=== PATIENT | male | born 1980 | race African-American/Black ===

== ENCOUNTER 2018-07-25 12:01 | Emergency (ER) | payer OTHER ==
[2018-07-25] MEDS ORDERED: LIDOCAINE 5% TOPICAL PATCH TP ONE (12:22)
[2018-07-25] MEDS ORDERED: KETOROLAC TROMETHAMINE 60 MG/2 ML VIAL ONE (12:22)
[2018-07-25] MEDS ORDERED: ORPHENADRINE CITRATE 30 MG/ML ML ONE (12:22)
[2018-07-25 13:10] LABS: APPEARANCE,URINE Clear (CLEAR); BILIRUBIN,URINE Negative (NEGATIVE); COLOR,URINE Yellow (YELLOW); GLUCOSE, URINE (UA) Negative (NEGATIVE); KETONES,URINE Trace mg/dL (NEGATIVE); LEUKOCYTE ESTERASE ,URINE Negative (NEGATIVE); NITRATE,URINE Negative (NEGATIVE); OCCULT BLOOD,URINE Negative (NEGATIVE); PH,URINE 5.5 (5.0-8.0); PROTEIN,URINE Trace (NEGATIVE)
[2018-07-25 13:36] LABS: BACTERIA,URINE Rare /HPF (None Seen); MUCUS,URINE Many LPF (None Seen); SQUAMOUS EPITHELIAL CELL,UR Few /HPF (0-2)
== END 2018-07-25 13:28 | disposition home or self-care (01) ==
LOC: EDH 12:01
DX: M54.42 Lumbago with sciatica, left side (principal)
CPT/HCPCS: 72100; 81001; 96372 ×2; 99284; J1885; J2360